=== PATIENT | female | born 1995 | race African-American/Black ===

== ENCOUNTER 2016-12-23 17:22 | Emergency (ER) | payer SELFPAY ==
--- NOTE | 2016-12-23 19:32 | UC ---
Complaint Female HPI - HPI Summary HPI Summary: terribly painful external labial rash and discharge. STarted a few days ago, worsening. Can't bear to urinate, too painful. Hurts even sitting still. No history of similar rash. No known STD exposure. Not .. No fever. - History Of Current Complaint Chief Complaint: UCGU Stated Complaint: PERSONAL Time Seen by Provider: 12/23/16 18:53 Hx Obtained From: Patient, Family/Guest Relations Executive - boyfriend here Hx Last Menstrual Period: 12/08/16 Onset/Duration: Gradual Onset, Lasting Days - 3 Timing: Constant Severity Initially: Mild Severity Currently: Severe Character: Burning Aggravating Factor(s): Movement, Urination Alleviating Factor(s): Nothing Associated Signs And Symptoms: Positive: Vaginal Bleeding/Discharge - white discharge, watery, Genital Swelling, Genital Blisters - not sure; some kind of rash. Negative: Fever, Back Pain, Nausea, Vomiting(# Of Episodes =) - Risk Factors Ectopic Risk Factor: Negative Ovarian Torsion Risk Factor: Negative - Allergies/Home Medications Allergies/Adverse Reactions: Allergies Allergy/AdvReac Type Severity Reaction Status Date / Time No Known Allergies Allergy Verified 12/23/16 17:44 PMH/Surg Hx/FS Hx/Imm Hx Previously Healthy: Yes - Surgical History Surgical History: None - Social History Occupation: Employed Full-time Lives: With Family Alcohol Use: Occasionally Substance Use Type: None Smoking Status (MU): Never Smoked Tobacco Review of Systems Constitutional: Negative Skin: Rash - labial Eyes: Negative ENT: Negative Respiratory: Negative Cardiovascular: Negative Gastrointestinal: Negative Genitourinary: Negative Motor: Negative Neurovascular: Negative Musculoskeletal: Negative Neurological: Negative Psychological: Negative All Other Systems Reviewed And Are Negative: Yes Physical Exam Triage Information Reviewed: Yes Appearance: Well-Appearing, No Pain Distress, Well-Nourished Vital Signs: Initial Vital Signs Temp 98.8 F 12/23/16 17:39 Pulse 86 12/23/16 17:39 Resp 16 12/23/16 17:39 Pulse Ox 100 12/23/16 17:39 Vital Signs Reviewed: Yes Eye Exam: Normal Neck exam: Normal Respiratory Exam: Normal Cardiovascular Exam: Normal Abdominal Exam: Normal Abdomen Description: Positive: Nontender, No Organomegaly, Soft Musculoskeletal Exam: Normal Neurological Exam: Normal Psychological Exam: Normal Skin Exam: Other - labia red and swollen. There is a creamy discharge. There are erosions on the labia minora. I don't see any blisters, but the erosions are intensely tender to swabbing. Diagnostics - Laboratory Diagnostic Studies Completed/Ordered: U/A: 3+ leuks, but she was not able to bear the alcohol wipe to cleanse before urinating; not Complaint Female Dx - Course Course Of Treatment: cultures sent - Differential Dx/Diagnosis Provider Diagnoses: Herpes genitalis Discharge - Discharge Plan Condition: Stable Disposition: HOME Prescriptions: Acetaminophen W/ Codeine [Acetaminophen/Codeine 300-60 mg] 1 tab PO Q4HR PRN # 20 tab MDD 6 tab PRN Reason: Pain ValACYclovir (*) [Valtrex 1 GM(*)] 1 gm PO BID #20 tab Patient Education Materials: Genital Herpes Simplex (ED) Additional Instructions: We sent several tests to the lab to determine exactly what your infection is. By appearance and symptoms, it is consistent with genital Herpes, but the tests will make the definitive determination. We have started medication to treat an outbreak of Herpes pending the results of the test. If you haven't heard from us regarding test results by Thursday noon, call here to ask for results.
== END 2016-12-23 19:39 | disposition home or self-care (01) ==
LOC: UCCORT 17:22
DX: A60.00 Herpesviral infection of urogenital system, unspecified (principal)
CPT/HCPCS: 81025; 87077; 87086; 87186; 87480; 87510; 87529; 99202; G0463